=== PATIENT | female | born 1985 | race American Indian/Alaskan Native ===

== ENCOUNTER 2017-03-31 18:26 | Emergency (ER) | payer OTHER ==
[2017-03-31 19:26] VITALS: BP 134/84
[2017-03-31] MEDS ORDERED: ZOFRAN ODT PO ONE (19:29)
[2017-03-31] MEDS ORDERED: TYLENOL PO ONE (19:29)
[2017-03-31 20:05] LABS: Hematocrit 41.1 % (30.3-42.9); Hemoglobin 13.2 gm/dl (10.1-14.3); Mean Corpuscular HGB Conc 32 % (30-34); Mean Corpuscular Hemoglobin 27 pg (28-32); Mean Corpuscular Volume 85 fl (79-97); Platelet Count 266 K/mm3 (140-440); Red Blood Count 4.84 M/mm3 (3.65-5.03); Red Cell Distribution Width 14.7 % (13.2-15.2)
[2017-03-31 20:22] LABS: BUN/Creatinine Ratio 12; Blood Urea Nitrogen 11 mg/dL (7-17); Calcium 9.7 mg/dL (8.4-10.2); Hemolysis Index 4
[2017-03-31 20:38] LABS: Bilirubin,Urine NEG (Negative); Blood,Urine LG (Negative); Mucus,Urine 3+ /HPF; Nitrite,Urine NEG (Negative)
[2017-03-31 20:41] LABS: RBC,Urine > 182.0 /HPF (0.0-6.0); WBC,Urine > 182.0 /HPF (0.0-6.0)
[2017-03-31 20:42] LABS: Color,Urine Red (Yellow)
[2017-03-31 21:26] LABS: Band Neutrophils # (Manual) 3.3 K/mm3; Basophils % (Manual) 0 % (0.0-1.8); Eosinophils % (Manual) 0 % (0.0-4.3); Ovalocytes Few; Total Cells Counted 100
== END 2017-04-01 04:09 | disposition left against medical advice (07) ==
LOC: ED 18:26
DX: R42 Dizziness and giddiness (principal); R11.0 Nausea; Z53.21 Procedure and treatment not carried out due to patient leaving prior to being seen by health care provider
CPT/HCPCS: 36415; 80048; 81001; 84703; 85007; 85025; Q0162

== ENCOUNTER 2017-04-03 14:33 | Emergency (ER) | payer OTHER ==
[2017-04-03] MEDS ORDERED: TYLENOL PO ONE (16:26)
[2017-04-03] MEDS ORDERED: TYLENOL ONE (16:28)
[2017-04-03] MEDS ORDERED: NACL 0.9% 1000 ML 1,000 ML IV ONE (17:17)
[2017-04-03 17:45] LABS: Bacteria,Urine 4+ /HPF (Negative); Bilirubin,Urine NEG (Negative); Blood,Urine MOD (Negative); Color,Urine Amber (Yellow); Mucus,Urine 2+ /HPF; Nitrite,Urine NEG (Negative)
[2017-04-03 17:47] LABS: WBC,Urine > 182.0 /HPF (0.0-6.0)
[2017-04-03 17:48] LABS: HCG Qualitative,Urine Negative (Negative)
[2017-04-03] MEDS ORDERED: ROCEPHIN 250 MG in NACL 0.9% 50 ML IV ONE (18:04)
[2017-04-03] MEDS ORDERED: ZITHROMAX PO ONE (18:09)
--- NOTE | 2017-04-03 18:15 | Emergency Department Report ---
HPI - General Chief Complaint: Fever Time Seen by Provider: 04/03/17 16:59 - HPI HPI: Patient is a 31-year-old female presents to ED complaining of fever and generalized body aches 4 days. Patient states she does not take any medication and is not allergic to any medications. Patient states starting Thursday she was just started to feel feverish and chills whole body hurts. She had made this urinary frequency but denies dysuria or hematuria. She denies any unprotected intercourse She denies cough, runny nose, nausea, vomiting, abdominal pain, chest pain, shortness of breath, pelvic pain, vaginal bleed, vaginal discharge, dyspareunia ED Past Medical Hx - Past Medical History Hx Asthma: Yes - Surgical History Additional Surgical History: C-sections X2, Tubal ligation - Social History Smoking Status: Never Smoker Substance Use Type: None - Medications Home Medications: Home Medications Medication Instructions Recorded Confirmed Last Taken Type Ibuprofen [Motrin] 800 mg PO Q8HR PRN #30 tablet 04/03/17 Unknown Rx Sulfamethoxazole/Trimethoprim 1 each PO BID #14 tablet 04/03/17 Unknown Rx [Bactrim DS TAB] ED Review of Systems ROS: Stated complaint: NOT FEELING GOOD Other details as noted in HPI Constitutional: denies: chills, fever Eyes: denies: eye pain, eye discharge, vision change ENT: denies: ear pain, throat pain Respiratory: denies: cough, shortness of breath, wheezing Cardiovascular: denies: chest pain, palpitations Endocrine: no symptoms reported Gastrointestinal: denies: abdominal pain, nausea, diarrhea Genitourinary: denies: urgency, dysuria, discharge Musculoskeletal: denies: back pain, joint swelling, arthralgia Skin: denies: rash, lesions Neurological: denies: headache, weakness, numbness, paresthesias, confusion Psychiatric: denies: anxiety, depression Hematological/Lymphatic: denies: easy bleeding, easy bruising Physical Exam - Physical Exam Vital Signs: Vital Signs 04/03/17 16:19 Temperature 101.7 F H Pulse Rate 106 H Respiratory 16 Rate Blood Pressure 118/72 O2 Sat by Pulse 96 Oximetry Physical Exam: GENERAL: Alert and oriented x3, no apparent distress, Normal Gait, atraumatic. HEAD: Head is normocephalic and a-traumatic. EYES: Pupils are equal, round, and reactive to light and accommodation. EARS: symetrical, atraumatic, non tender, ear canal clear and moderate cerumen, tympanic membrance non inflamed. gross auditory nml bilaterally. NOSE: Nose symetrical, Nontender,Nares appeared normal. MOUTH:Mouth is well hydrated and without lesions. Tonsils nonerythematous or swollen, Uvula midline, Tongue not elevated. Mucous membranes are moist. Posterior pharynx clear, no exudate or lesions. Patent airways. NECK: Supple. Non edematous, No nucal rigidity No lymphadenopathy or thyromegaly. No C-spine tenderness LUNGS: Symetrical with respiration, No wheezing, no rales or crackles, CTAB. HEART: S1, S2 present, regular rate and rhythm without murmur, no rubs, no gallops. Non tender to palpation ABDOMEN: No organomegaly was noted,Positive bowel sounds, soft, and non- distended. . Nontender to palpation on all Quadrants, NO CVA tenderness. BACK: Full range of motion, no spinal tenderness, nontender to palpation. NEUROLOGIC: The patient is cooperative with no focal neurologic deficits. SKIN: Warm and dry, No lesions, No ulceration or induration present. ED Course Vital Signs 04/03/17 16:19 Temperature 101.7 F H Pulse Rate 106 H Respiratory 16 Rate Blood Pressure 118/72 O2 Sat by Pulse 96 Oximetry ED Medical Decision Making - Lab Data Result diagrams: 04/03/17 18:35 - Medical Decision Making 31-year-old female presents with acute pyelonephritis/UTI ED course: Patient received 1 L of fluids, Tylenol, Rocephin 250mg Urinalysis shows positive bacteria, elevated white blood count. Urine test negative CBC and BMP ordered. CBC shows normal white count. [employer] did not draw labs until an hour and a half after ordered so patient received fluids prior to drawing labs I discussed findings with the patient. I discussed the patient will send her home on 7 days of antibiotics and Motrin for pain. I discussed with the patient to follow-up with primary care physician in 3-5 days. I discussed with the patient she has worsening symptoms to return to ED immediately. Vital signs normalized, masses or reduced. Patient is no acute or respiratory distress. Reports feeling a bit better. I discussed UTI Prevention with patient Critical care attestation.: If time is entered above; I have spent that time in minutes in the direct care of this critically ill patient, excluding procedure time. ED Disposition Clinical Impression: Pyelonephritis UTI (urinary tract infection) Qualifiers: Urinary tract infection type: acute cystitis Hematuria presence: without hematuria Qualified Code(s): N30.00 - Acute cystitis without hematuria Disposition: TO HOME OR SELFCARE Is pt being admited?: No Does the pt Need Aspirin: No Condition: Stable Instructions: Urinary Tract Infection in Women (ED), Acute Pyelonephritis (ED) Additional Instructions: Make sure to follow up with the primary care physician as discussed. Take all your medications as you've been prescribed. If you have any worsening symptoms or develop new symptoms please return to ED immediately. Prescriptions: Ibuprofen [Motrin] 800 mg PO Q8HR PRN #30 tablet PRN Reason: Pain Sulfamethoxazole/Trimethoprim [Bactrim DS TAB] 1 each PO BID #14 tablet Referrals: PRIMARY CAREMD [Primary Care Provider] - 3-5 Days MAURY BLUM MD [Staff Physician] - 3-5 Days [facility] [Outside] - 3-5 Days [facility] [Outside] - 3-5 Days [facility] [Outside] - 3-5 Days Forms: Work/School Release Form(ED) Time of Disposition: 18:20
[2017-04-03 18:42] LABS: Basophils % (Auto) 0.4 % (0.0-1.8); Hematocrit 33.7 % (30.3-42.9); Hemoglobin 10.7 gm/dl (10.1-14.3); Lymphocytes # (Auto) 1.2 K/mm3 (1.2-5.4); Lymphocytes % (Auto) 14.5 % (13.4-35.0); Mean Corpuscular HGB Conc 32 % (30-34); Mean Corpuscular Hemoglobin 27 pg (28-32); Mean Corpuscular Volume 85 fl (79-97); Monocytes # (Auto) 0.9 K/mm3 (0.0-0.8); Monocytes % (Auto) 10.5 % (0.0-7.3); Platelet Count 193 K/mm3 (140-440); Red Blood Count 3.98 M/mm3 (3.65-5.03); Red Cell Distribution Width 14.6 % (13.2-15.2)
[2017-04-03 18:54] VITALS: BP 116/77
[2017-04-03 19:01] LABS: BUN/Creatinine Ratio 20; Blood Urea Nitrogen 20 mg/dL (7-17); Calcium 8.4 mg/dL (8.4-10.2); Hemolysis Index 1
[2017-04-03] MEDS ORDERED: cefTRIAXone 0.25 GM in NACL 0.9% 20 ML IV ONE (19:30)
== END 2017-04-03 20:08 | disposition home or self-care (01) ==
LOC: ED 14:33
DX: N12 Tubulo-interstitial nephritis, not specified as acute or chronic (principal); N30.00 Acute cystitis without hematuria; J45.909 Unspecified asthma, uncomplicated
CPT/HCPCS: 36415; 80048; 81001; 81025; 85025; 96361; 96365; 99284; J0696; J7030